=== PATIENT | female | born 1995 | race Caucasian/White ===

== ENCOUNTER 2017-12-01 12:47 | Emergency (ER) | payer OTHER ==
[~2017-12-01] VITALS: Ht 170.2 cm; Wt 65.8 kg
[~2017-12-01 12:47] MED LIST: Atarax10 MG; Augmentin 500-1 EACH PO; CIPR500 PO; DOXY100 PO; ESCI10 PO; HYDHCL25 PO; IBUP400 PO; IBUP600 PO; IBUP800 PO; MAGIC MOUTHWASH; METO10 PO; METR250 PO; METR500 PO; MUPI2TO TOP; Norco 5-325 Ta1 EACH PO; OXYACE7.5T PO; PARO20; PERM5TC TOP; PROM25 PO; PROM25 PR; Pseudoephedrine30 MG PO; Zofran Odt4 MG SL
[2017-12-01] MEDS ORDERED: QUET200 PO (13:48)
[2017-12-01] MEDS ORDERED: BUSP10 PO (13:48)
[2017-12-01] MEDS ORDERED: ALBU90OI INH (14:42)
[2017-12-01] MEDS ORDERED: BENZ100A PO (14:42)
[2017-12-01] MEDS ORDERED: Prednisone20 MG PO (14:42)
== END 2017-12-01 14:49 | disposition home or self-care (01) ==
LOC: ER 12:47
DX: J40 Bronchitis, not specified as acute or chronic (principal); F17.210 Nicotine dependence, cigarettes, uncomplicated; Z79.899 Other long term (current) drug therapy
CPT/HCPCS: 71046; 94640; 99284

== ENCOUNTER 2018-02-09 19:14 | Emergency (ER) | payer OTHER ==
[~2018-02-09] VITALS: Ht 165.1 cm; Wt 64.9 kg
[~2018-02-09 19:14] MED LIST changes: +ALBU90OI INH; +BENZ100A PO; +BUSP10 PO; +Prednisone20 MG PO; +QUET200 PO
[2018-02-09] MEDS ORDERED: ERYT1OIN LEFTEYE (19:32)
[2018-02-09] MEDS ORDERED: BUSP10 PO (19:38)
[2018-02-09] MEDS ORDERED: QUET200 PO ×2 (19:40→19:41)
[2018-02-09] MEDS ORDERED: TRAZ150T57 PO (19:43)
[2018-02-09] MEDS ORDERED: IBUP600 PO (19:44)
[2018-02-09] MEDS ORDERED: Omeprazole20 M1 (19:44)
[2018-02-09] MEDS ORDERED: BUPR75 PO (19:44)
[2018-02-09] MEDS ORDERED: Cyclobenzaprine5 MG PO (19:44)
[2018-02-09] MEDS ORDERED: ERGO400 PO (19:47)
== END 2018-02-09 19:57 | disposition home or self-care (01) ==
LOC: ER 19:14
DX: S05.02XA Injury of conjunctiva and corneal abrasion without foreign body, left eye, initial encounter (principal); F17.200 Nicotine dependence, unspecified, uncomplicated; Z79.899 Other long term (current) drug therapy; X58.XXXA Exposure to other specified factors, initial encounter
CPT/HCPCS: 99283

== ENCOUNTER 2018-03-09 21:46 | Emergency (ER) | payer OTHER ==
[~2018-03-09] VITALS: Ht 167.6 cm; Wt 66.2 kg
[~2018-03-09 21:46] MED LIST changes: +BUPR75 PO; +Cyclobenzaprine5 MG PO; +ERGO400 PO; +ERYT1OIN LEFTEYE; +Omeprazole20 M1; +TRAZ150T57 PO
[2018-03-09] MEDS ORDERED: Voltaren100 GM TOP (23:31)
== END 2018-03-09 23:51 | disposition home or self-care (01) ==
LOC: ER 21:46
DX: R07.89 Other chest pain (principal); F17.200 Nicotine dependence, unspecified, uncomplicated; Z79.899 Other long term (current) drug therapy
CPT/HCPCS: 93005; 93010; 99283-25

== ENCOUNTER 2021-03-09 21:18 | Emergency (ER) | payer OTHER ==
[~2021-03-09] VITALS: Ht 165.1 cm; Wt 45.4 kg
[~2021-03-09 21:18] MED LIST changes: +Voltaren100 GM TOP
[2021-03-10] MEDS ORDERED: Percocet 5-3251 EACH PO (00:26)
[2021-03-10] MEDS ORDERED: Zofran8 MG PO (00:26)
== END 2021-03-10 00:41 | disposition home or self-care (01) ==
LOC: ER 21:18
DX: M27.3 Alveolitis of jaws (principal); F17.210 Nicotine dependence, cigarettes, uncomplicated; Z79.899 Other long term (current) drug therapy
CPT/HCPCS: 96372; 99282-25; A9270; J1885

== ENCOUNTER → 2022-02-21 | Outpatient (CLI) | payer OTHER ==
[~2022-02-21] MED LIST changes: +ONDA4ODT MM; +Percocet 5-3251 EACH PO; +Zofran8 MG PO
[2022-02-22 09:10] LABS: HIV AB/P24 AG SCREEN Non Reactive (Non Reactive)
[2022-02-23 08:11] LABS: HBSAG SCREEN Negative (Negative); HCV AB <0.1 (0.0-0.9); HEP A AB, IGM Negative (Negative); HEP B CORE AB, TOT Negative (Negative)
[2022-02-23 16:11] LABS: CHLAMYDIA BY NAA Negative (Negative); GONOCOCCUS BY NAA Negative (Negative); TRICH VAG BY NAA Negative (Negative)
== END | disposition home or self-care (01) ==
LOC: LAB SHORT 10:20 → LAB 10:20
PROVIDERS: General Practice
DX: Z11.3 Encounter for screening for infections with a predominantly sexual mode of transmission (principal); N39.0 Urinary tract infection, site not specified; Z20.09 Contact with and (suspected) exposure to other intestinal infectious diseases
CPT/HCPCS: 86592; 86704; 86708; 86803; 87086; 87340; 87389; 87491; 87591; 87661

== ENCOUNTER 2022-07-19 18:49 | Emergency (ER) | payer OTHER ==
[~2022-07-19] VITALS: Ht 162.6 cm; Wt 52.2 kg
[2022-07-19 19:58] LABS: Source, Urine Clean Catch
[2022-07-19 20:02] LABS: Appearance, Urine Clear (Clear); Bilirubin, Urine Neg (Neg); Blood, Urine Neg (Neg); Color, Urine Yellow (P-Yellow); Glucose Qualitative, Urine Neg (Neg); Ketones, Urine Neg (Neg); Leukocyte Esterase, Urine Neg (Neg); Nitrite, Urine Neg (Neg); Protein, Urine Neg (Neg); Urobilinogen, Urine NORM (Normal)
[2022-07-19 20:19] LABS: BASOPHILS ABSOLUTE AUTO 0.06 K/mm3 (0.00-0.23); BASOPHILS PERCENT AUTO 0 % (0-2); EOSINOPHILS ABSOLUTE AUTO 0.22 K/mm3 (0.00-0.68); EOSINOPHILS PERCENT AUTO 2 % (0-6); Hematocrit 40.7 % (33.0-51.0); Hemoglobin 13.5 g/dL (11.5-16.0); Mean Corpuscular HGB 30.5 pg (26.0-34.0); Mean Corpuscular HGB Conc 33.2 g/dL (31.5-36.5); Mean Corpuscular Volume 92 fL (80-100); Mean Platelet Volume 8.7 fL (9.1-12.4); Platelet Count 314 K/mm3 (150-400); RDW Coefficient Variation 12.5 % (11.7-14.2); RDW Standard Deviation 42.2 fL (35.1-46.3); Red Blood Cell Count 4.43 M/mm3 (3.80-5.20); White Blood Cell Count 13.53 K/mm3 (4.00-11.30)
[2022-07-19 20:21] LABS: IMMATURE GRAN ABSOLUTE AUTO 0.03 K/mm3 (0.00-0.10); IMMATURE GRAN PERCENT AUTO 0 % (0-1); LYMPHOCYTES ABSOLUTE AUTO 6.27 K/mm3 (0.84-5.20); LYMPHOCYTES PERCENT AUTO 46 % (21-46); MONOCYTES ABSOLUTE AUTO 0.82 K/mm3 (0.16-1.47); MONOCYTES PERCENT AUTO 6 % (4-13); NEUTROPHILS ABSOLUTE AUTO 6.13 K/mm3 (1.96-9.15); NEUTROPHILS PERCENT AUTO 45 % (41-73)
[2022-07-19 20:50] LABS: Albumin, Blood 4.3 g/dL (3.4-5.0); Albumin/Globulin Ratio 1.3 (0.8-1.8); Bilirubin, Total 0.4 mg/dL (0.1-1.0); Bun/Creatinine Ratio 16.9 (12.0-20.0); Calcium, Blood 8.8 mg/dL (8.5-10.1); Creatinine, Blood 0.59 mg/dL (0.40-1.00); Globulin, Blood 3.3 g/dL (2.2-4.0); Total Protein, Blood 7.6 g/dL (6.4-8.2)
== END 2022-07-20 02:19 | disposition home or self-care (01) ==
LOC: ER 18:49
PROVIDERS: Student in an Organized Health Care Education/Training Program
DX: R10.31 Right lower quadrant pain (principal); N70.11 Chronic salpingitis; F17.210 Nicotine dependence, cigarettes, uncomplicated; Z79.899 Other long term (current) drug therapy
CPT/HCPCS: 76830; 76856; 80053; 81003; 81025; 85025; J1885

== ENCOUNTER 2022-08-27 10:37 | Day surgery (SDC) | payer OTHER ==
[~2022-08-27] VITALS: Ht 165.1 cm; Wt 51.8 kg
--- NOTE | 2022-08-27 12:19 | NUR ---
08/27/22 1218 Pricila Yepez [facility].AM UPPER PREP-DURAPREP ORS.KNLi LOWER PREP-CHLORAPREP
[2022-08-28] MEDS ORDERED: ONDA4ODT MM (00:56)
== END 2022-08-27 14:55 | disposition home or self-care (01) ==
LOC: ORSCSDS 10:37
PROVIDERS: Obstetrics & Gynecology
PROC: 0DNU4ZZ Release Omentum, Percutaneous Endoscopic Approach (ICD-10-PCS; principal; 2022-08-27 12:00)
PROC: 0UT54ZZ Resection of Right Fallopian Tube, Percutaneous Endoscopic Approach (ICD-10-PCS; principal; 2022-08-27 12:00)
DX: R10.2 Pelvic and perineal pain (principal); R19.00 Intra-abdominal and pelvic swelling, mass and lump, unspecified site; N70.11 Chronic salpingitis; K66.0 Peritoneal adhesions (postprocedural) (postinfection); N83.8 Other noninflammatory disorders of ovary, fallopian tube and broad ligament
CPT/HCPCS: 88305; J0171; J1100; J1885; J2250; J2405; J2704; J2765; J2795; J3010; J7030

== ENCOUNTER 2022-08-27 23:59 | Emergency (ER) | payer OTHER ==
[~2022-08-27] VITALS: Ht 165.1 cm; Wt 51.7 kg
[2022-08-28] MEDS ORDERED: ONDA4ODT MM (00:56)
== END 2022-08-28 02:21 | disposition home or self-care (01) ==
LOC: ER 23:59
DX: R11.2 Nausea with vomiting, unspecified (principal); F17.210 Nicotine dependence, cigarettes, uncomplicated; Z98.890 Other specified postprocedural states; Z88.5 Allergy status to narcotic agent; Z88.6 Allergy status to analgesic agent
CPT/HCPCS: 96374; 96375; 99284; J1200; J2765; J7030

== ENCOUNTER → 2023-01-20 | Outpatient (CLI) | payer OTHER ==
[2023-01-20 16:19] LABS: BASOPHILS ABSOLUTE AUTO 0.08 K/mm3 (0.00-0.23); BASOPHILS PERCENT AUTO 0 % (0-2); EOSINOPHILS ABSOLUTE AUTO 0.03 K/mm3 (0.00-0.68); EOSINOPHILS PERCENT AUTO 0 % (0-6); Hematocrit 42.4 % (33.0-51.0); Hemoglobin 14.9 g/dL (11.5-16.0); IMMATURE GRAN ABSOLUTE AUTO 0.14 K/mm3 (0.00-0.10); IMMATURE GRAN PERCENT AUTO 1 % (0-1); LYMPHOCYTES ABSOLUTE AUTO 3.47 K/mm3 (0.84-5.20); LYMPHOCYTES PERCENT AUTO 13 % (21-46); MONOCYTES ABSOLUTE AUTO 1.85 K/mm3 (0.16-1.47); MONOCYTES PERCENT AUTO 7 % (4-13); Mean Corpuscular HGB 31.1 pg (26.0-34.0); Mean Corpuscular HGB Conc 35.1 g/dL (31.5-36.5); Mean Corpuscular Volume 89 fL (80-100); Mean Platelet Volume 8.5 fL (9.1-12.4); NEUTROPHILS ABSOLUTE AUTO 20.72 K/mm3 (1.96-9.15); NEUTROPHILS PERCENT AUTO 79 % (41-73); Platelet Count 317 K/mm3 (150-400); RDW Coefficient Variation 12.3 % (11.7-14.2); RDW Standard Deviation 40.2 fL (35.1-46.3); Red Blood Cell Count 4.79 M/mm3 (3.80-5.20); White Blood Cell Count 26.29 K/mm3 (4.00-11.30)
[2023-01-20 16:36] LABS: Albumin, Blood 4.8 g/dL (3.4-5.0); Albumin/Globulin Ratio 1.3 (0.8-1.8); Bilirubin, Total 0.9 mg/dL (0.1-1.0); Calcium, Blood 9.5 mg/dL (8.5-10.1); Creatinine, Blood 0.77 mg/dL (0.40-1.00); Globulin, Blood 3.8 g/dL (2.2-4.0); Potassium, Blood 3.4 mmol/L (3.5-5.5); Total Protein, Blood 8.6 g/dL (6.4-8.2)
== END | disposition home or self-care (01) ==
LOC: LAB SHORT 16:15 → LAB 16:15
PROVIDERS: Family Medicine
DX: R10.9 Unspecified abdominal pain (principal)
CPT/HCPCS: 80053; 83690; 85025

== ENCOUNTER → 2023-01-21 | Outpatient (CLI) | payer OTHER ==
[2023-01-21 14:20] LABS: C DIFFICILE DNA POSITIVE (Negative)
== END | disposition home or self-care (01) ==
LOC: LAB SHORT 03:45 → LAB 03:45
PROVIDERS: Family Medicine
DX: R19.7 Diarrhea, unspecified (principal)
CPT/HCPCS: 87324; 87493

== ENCOUNTER 2024-09-24 22:05 | Observation (INO) | payer OTHER ==
[~2024-09-24] VITALS: Ht 160 cm; Wt 49.9 kg
[2024-09-24 23:03] LABS: BASOPHILS ABSOLUTE AUTO 0.02 K/mm3 (0.00-0.23); BASOPHILS PERCENT AUTO 0 % (0-2); EOSINOPHILS ABSOLUTE AUTO 0.01 K/mm3 (0.00-0.68); EOSINOPHILS PERCENT AUTO 0 % (0-6); Hematocrit 35.3 % (33.0-51.0); Hemoglobin 12.4 g/dL (11.5-16.0); IMMATURE GRAN ABSOLUTE AUTO 0.05 K/mm3 (0.00-0.10); IMMATURE GRAN PERCENT AUTO 0 % (0-1); LYMPHOCYTES ABSOLUTE AUTO 2.37 K/mm3 (0.84-5.20); LYMPHOCYTES PERCENT AUTO 17 % (21-46); MONOCYTES ABSOLUTE AUTO 0.58 K/mm3 (0.16-1.47); MONOCYTES PERCENT AUTO 4 % (4-13); Mean Corpuscular HGB 31.3 pg (26.0-34.0); Mean Corpuscular HGB Conc 35.1 g/dL (31.5-36.5); Mean Corpuscular Volume 89 fL (80-100); Mean Platelet Volume 8.2 fL (9.1-12.4); NEUTROPHILS ABSOLUTE AUTO 11.26 K/mm3 (1.96-9.15); NEUTROPHILS PERCENT AUTO 79 % (41-73); Platelet Count 279 K/mm3 (150-400); RDW Coefficient Variation 12.1 % (11.7-14.2); RDW Standard Deviation 39.8 fL (35.1-46.3); Red Blood Cell Count 3.96 M/mm3 (3.80-5.20); White Blood Cell Count 14.29 K/mm3 (4.00-11.30)
[2024-09-24 23:05] LABS: Source, Urine Clean Catch
[2024-09-24 23:08] LABS: Bilirubin, Urine Neg (Neg); Blood, Urine 1+ (Neg); Glucose Qualitative, Urine Neg (Neg); Ketones, Urine 4+ (Neg); Leukocyte Esterase, Urine Neg (Neg); Nitrite, Urine Neg (Neg); Protein, Urine 2+ (Neg); Specific Gravity, Urine 1.025 (1.003-1.022); Urobilinogen, Urine NORM (Normal)
[2024-09-24] MEDS ORDERED: Acetaminophen 500 MG Tab PO ONE (23:10)
[2024-09-24] MEDS ORDERED: Ondansetron HCl 2 MG / ML 2ML Vial IV ONE (23:10)
[2024-09-24] MEDS ORDERED: NS 1,000 ML IV SCH (23:10)
[2024-09-24 23:18] LABS: Albumin/Globulin Ratio 1.3 (0.8-1.8); Bilirubin, Total 0.5 mg/dL (0.1-1.0); Creatinine, Blood 0.42 mg/dL (0.40-1.00); Globulin, Blood 3.1 g/dL (2.2-4.0); Potassium, Blood 3.7 mmol/L (3.5-5.5); Total Protein, Blood 7.1 g/dL (6.4-8.2)
[2024-09-24 23:19] LABS: Color, Urine Yellow (P-Yellow)
[2024-09-24 23:20] LABS: Appearance, Urine Hazy (Clear)
[2024-09-24 23:22] LABS: Bacteria Mod /hpf; Mucus Light (0-Heavy); Red Blood Cells, Urine 0-2 /hpf (0-2); Squamous Epithelial Cells Mod /hpf (Few); White Blood Cells, Urine 0-2 /hpf (0-5); Yeast/Fungi Urine Few /hpf
[2024-09-24] MEDS ORDERED: DiphenhydrAMINE HCl 50 MG/ML 1ML Vial IV ONE (23:55)
[2024-09-24] MEDS ORDERED: Metoclopramide HCl 5MG / ML 2ML Vial IV ONE (23:55)
[2024-09-25 00:15] LABS: Influenza A, PCR NEGATIVE (NEGATIVE); Influenza B, PCR NEGATIVE (NEGATIVE); Resp Syncytial Virus, PCR NEGATIVE (NEGATIVE); SARS-Cov-2 (COVID-19) PCR, MMC NEGATIVE (NEGATIVE)
[2024-09-25] MEDS ORDERED: Prochlorperazine Edisylate 10 mg Vial IV ONE (00:55)
[2024-09-25] MEDS ORDERED: Famotidine 10 MG/ML 2ML Vial IV ONE (00:55)
[2024-09-25] MEDS ORDERED: Promethazine HCl 25 MG Tab PO ONE (02:10)
[2024-09-25] MEDS ORDERED: NS 1,000 ML IV SCH (02:20)
[2024-09-25] MEDS ORDERED: NS 1,000 ML IV ONE (02:20)
[2024-09-25] MEDS ORDERED: PROM12.5S PR (03:13)
[2024-09-25 03:15] VITALS: BP 107/81
== END 2024-09-25 03:15 | disposition home or self-care (01) ==
LOC: ER 22:05 → ERHOLD 22:06 → EDBEDREQ 09-25 02:17 → ERHOLD 09-25 03:15
PROVIDERS: Physician Assistant; ADMIT Obstetrics & Gynecology
DX: O21.0 Mild hyperemesis gravidarum (principal); Z3A.01 Less than 8 weeks gestation of pregnancy; F17.210 Nicotine dependence, cigarettes, uncomplicated; F12.99 Cannabis use, unspecified with unspecified cannabis-induced disorder
CPT/HCPCS: 0241U; 80053; 81001; 83690; 85025; 96361; 96374; 96375; 99285-25; A9270; G0378; J0780; J1200; J2405; J2765; J7030

== ENCOUNTER → 2024-10-07 | Outpatient (CLI) | payer OTHER ==
[~2024-10-07] MED LIST changes: +PROM12.5S PR
[2024-10-07 12:56] LABS: Source, Urine Voided
[2024-10-07 14:32] LABS: Amorphous Heavy (0-Heavy); Bacteria Few /hpf; White Blood Cells, Urine 0-2 /hpf (0-5)
[2024-10-07 14:33] LABS: Squamous Epithelial Cells Many /hpf (Few)
[2024-10-07 14:43] LABS: U Amphetamine Screen Not Detected; U Barbituate Screen Not Detected; U Benzodiazapine Screen Not Detected; U Cannabinoids Screen DETECTED; U Cocaine Screen Not Detected; U Methadone Screen Not Detected; U Methamphetamine Screen Not Detected; U Opiates Screen Not Detected; U Phencyclidine Screen Not Detected
[2024-10-07 14:44] LABS: U Buprenorphine Screen Not Detected; U Oxycodone Screen Not Detected
[2024-10-10 14:24] LABS: 11-NOR-9-CARBOXY-THC,URN,QUANT >500 ng/mL
== END | disposition home or self-care (01) ==
LOC: LAB 10:15 → LAB SHORT 10:15
PROVIDERS: Obstetrics & Gynecology
DX: Z34.01 Encounter for supervision of normal first pregnancy, first trimester (principal)
CPT/HCPCS: 81015; 87086; G0480

== ENCOUNTER → 2025-03-31 | Outpatient (CLI) | payer OTHER ==
[2025-03-31 22:19] LABS: Protein, Urine Quantitative 14.3 mg/dL (0.0-11.9)
== END ==
LOC: LAB SHORT 14:38 → LAB 14:38
PROVIDERS: Obstetrics & Gynecology
DX: R03.0 Elevated blood-pressure reading, without diagnosis of hypertension (principal)
CPT/HCPCS: 81050; 84156

== ENCOUNTER → 2025-04-11 | Outpatient (CLI) | payer OTHER ==
[2025-04-11 19:28] LABS: BASOPHILS ABSOLUTE AUTO 0.04 K/mm3 (0.00-0.23); BASOPHILS PERCENT AUTO 0 % (0-2); EOSINOPHILS ABSOLUTE AUTO 0.20 K/mm3 (0.00-0.68); EOSINOPHILS PERCENT AUTO 2 % (0-6); Hematocrit 33.7 % (33.0-51.0); Hemoglobin 11.6 g/dL (11.5-16.0); IMMATURE GRAN ABSOLUTE AUTO 0.12 K/mm3 (0.00-0.10); IMMATURE GRAN PERCENT AUTO 1 % (0-1); LYMPHOCYTES ABSOLUTE AUTO 2.68 K/mm3 (0.84-5.20); LYMPHOCYTES PERCENT AUTO 22 % (21-46); MONOCYTES ABSOLUTE AUTO 1.01 K/mm3 (0.16-1.47); MONOCYTES PERCENT AUTO 8 % (4-13); Mean Corpuscular HGB Conc 34.4 g/dL (31.5-36.5); Mean Corpuscular Volume 89 fL (80-100); NEUTROPHILS ABSOLUTE AUTO 8.09 K/mm3 (1.96-9.15); NEUTROPHILS PERCENT AUTO 67 % (41-73); NRBC ABSOLUTE 0.00 K/mm3 (0.00-0.02); NRBC Auto 0.0 /100 WBC (0.0-0.2); Platelet Count 250 K/mm3 (150-400); RDW Coefficient Variation 12.4 % (11.7-14.2); RDW Standard Deviation 40.3 fL (35.1-46.3)
[2025-04-11 20:16] LABS: Alanine Aminotransfer (ALT/SGP 23.0 U/L (12-78); Albumin, Blood 2.5 g/dL (3.4-5.0); Albumin/Globulin Ratio 0.7 (0.8-1.8); Anion Gap 12.0 mmol/L (3-11); Aspartate Aminotrans (AST/SGOT 16.0 U/L (12-37); Bilirubin, Total 0.2 mg/dL (0.1-1.0); Blood Urea Nitrogen 5.0 mg/dL (8-24); CO2, Blood 20.0 mmol/L (21-32); Calcium, Blood 8.3 mg/dL (8.5-10.1); Chloride, Blood 108.0 mmol/L (98-108); Creatinine, Blood 0.46 mg/dL (0.40-1.00); Globulin, Blood 3.7 g/dL (2.2-4.0); Glucose, Blood 92.0 mg/dL (70-99); Potassium, Blood 3.5 mmol/L (3.5-5.5); Sodium, Blood 136.0 mmol/L (136-145); Total Protein, Blood 6.2 g/dL (6.4-8.2)
== END ==
LOC: LAB SHORT 16:19 → LAB 16:19
PROVIDERS: Obstetrics & Gynecology
DX: O09.893 Supervision of other high risk pregnancies, third trimester (principal)
CPT/HCPCS: 36415; 80053; 85025; 87081; 87150

== ENCOUNTER → 2025-04-27 | Outpatient (CLI) | payer OTHER ==
[2025-04-27 20:18] LABS: Creatinine, Urine Random 66.5 mg/dL (27.00-270.00); Protein, Urine Random 15.4 mg/dL (0.0-11.9); Protein/Creat Ratio, Ur Random 0.2
== END ==
LOC: LAB 16:43 → LAB SHORT 16:43
PROVIDERS: Obstetrics & Gynecology
DX: R03.0 Elevated blood-pressure reading, without diagnosis of hypertension (principal)
CPT/HCPCS: 82570; 84156

== ENCOUNTER 2025-05-08 09:22 | Inpatient (IN) | payer OTHER ==
[~2025-05-08] VITALS: Ht 167.6 cm; Wt 86.0 kg
[2025-05-08] VITALS (18 sets, daily range): BP systolic 97–137; BP diastolic 55–88
[2025-05-08] MEDS ORDERED: Ondansetron HCl 2 MG / ML 2ML Vial IV PRN (09:55)
[2025-05-08] MEDS ORDERED: Methylergonovine Maleate 0.2MG / ML 1ML Amp IM PRN ×2 (09:55→23:25)
[2025-05-08] MEDS ORDERED: Oxytocin 10 Unit / ML Vial IM PRN (09:55)
[2025-05-08] MEDS ORDERED: Carboprost Tromethamine 250 MCG/ML 1ML Amp IM PRN ×2 (09:55→23:20)
[2025-05-08] MEDS ORDERED: OXYTOCIN/RINGER'S LACTATE 500 ML IV PRN (09:55)
[2025-05-08] MEDS ORDERED: Tranexamic Acid 100 ML IV SCH (09:55)
[2025-05-08] MEDS ORDERED: FentaNYL 2mcg/ml-Bup 0.1% Epd 250 ML EPI PRN (10:00)
[2025-05-08] MEDS ORDERED: ePHEDrine Sulfate 50 MG/ML 1ML Injection XX PRN (10:00)
[2025-05-08] MEDS ORDERED: PRENATAL TABLE1 EAC2 PO (10:00)
[2025-05-08 10:11] LABS: BASOPHILS ABSOLUTE AUTO 0.03 K/mm3 (0.00-0.23); BASOPHILS PERCENT AUTO 0 % (0-2); EOSINOPHILS ABSOLUTE AUTO 0.13 K/mm3 (0.00-0.68); EOSINOPHILS PERCENT AUTO 1 % (0-6); Hematocrit 36.9 % (33.0-51.0); Hemoglobin 12.7 g/dL (11.5-16.0); IMMATURE GRAN ABSOLUTE AUTO 0.07 K/mm3 (0.00-0.10); IMMATURE GRAN PERCENT AUTO 1 % (0-1); LYMPHOCYTES ABSOLUTE AUTO 2.13 K/mm3 (0.84-5.20); LYMPHOCYTES PERCENT AUTO 19 % (21-46); MONOCYTES ABSOLUTE AUTO 0.72 K/mm3 (0.16-1.47); MONOCYTES PERCENT AUTO 6 % (4-13); Mean Corpuscular HGB Conc 34.4 g/dL (31.5-36.5); Mean Corpuscular Volume 89 fL (80-100); NEUTROPHILS ABSOLUTE AUTO 8.12 K/mm3 (1.96-9.15); NEUTROPHILS PERCENT AUTO 73 % (41-73); NRBC ABSOLUTE 0.00 K/mm3 (0.00-0.02); NRBC Auto 0.0 /100 WBC (0.0-0.2); Platelet Count 236 K/mm3 (150-400); RDW Coefficient Variation 12.7 % (11.7-14.2); RDW Standard Deviation 41.2 fL (35.1-46.3)
[2025-05-08] MEDS ORDERED: OXYTOCIN/RINGER'S LACTATE 500 ML IV SCH ×2 (19:20→23:15)
[2025-05-08] MEDS ORDERED: FentaNYL Citrate 50 MCG/ML 2 ML Injection ONE ×2 (20:03→22:28)
[2025-05-08] MEDS ORDERED: FentaNYL Citrate 50 MCG/ML 2 ML Injection IV ONE ×3 (22:35→23:55)
[2025-05-08] MEDS ORDERED: Oxytocin 10 Unit / ML Vial IM ONE (23:20)
[2025-05-08] MEDS ORDERED: Witch Hazel/Glycerin PADS TOP PRN (23:20)
[2025-05-08] MEDS ORDERED: Benzocaine Topical Anesthetic Spray 60GM TOP PRN (23:25)
[2025-05-08] MEDS ORDERED: CeFAZolin Sodium 2,000 MG in NS 100 ML IV ONE (23:55)
[2025-05-09] VITALS (11 sets, daily range): BP systolic 119–142; BP diastolic 62–76
[2025-05-09] MEDS ORDERED: Ketorolac Tromethamine 30mg Vial IV SCH
[2025-05-09 07:45] LABS: BASOPHILS ABSOLUTE AUTO 0.03 K/mm3 (0.00-0.23); BASOPHILS PERCENT AUTO 0 % (0-2); EOSINOPHILS ABSOLUTE AUTO 0.02 K/mm3 (0.00-0.68); EOSINOPHILS PERCENT AUTO 0 % (0-6); Hematocrit 29.8 % (33.0-51.0); Hemoglobin 10.1 g/dL (11.5-16.0); IMMATURE GRAN ABSOLUTE AUTO 0.12 K/mm3 (0.00-0.10); IMMATURE GRAN PERCENT AUTO 1 % (0-1); LYMPHOCYTES ABSOLUTE AUTO 2.31 K/mm3 (0.84-5.20); LYMPHOCYTES PERCENT AUTO 13 % (21-46); MONOCYTES ABSOLUTE AUTO 1.40 K/mm3 (0.16-1.47); MONOCYTES PERCENT AUTO 8 % (4-13); Mean Corpuscular HGB Conc 33.9 g/dL (31.5-36.5); Mean Corpuscular Volume 90 fL (80-100); NEUTROPHILS ABSOLUTE AUTO 14.48 K/mm3 (1.96-9.15); NEUTROPHILS PERCENT AUTO 79 % (41-73); NRBC ABSOLUTE 0.00 K/mm3 (0.00-0.02); NRBC Auto 0.0 /100 WBC (0.0-0.2); Platelet Count 211 K/mm3 (150-400); RDW Coefficient Variation 12.7 % (11.7-14.2); RDW Standard Deviation 41.7 fL (35.1-46.3)
[2025-05-09] MEDS ORDERED: Prenatal Vit/FE Fumarate/FA 1 Tab PO SCH (09:00)
[2025-05-09] MEDS ORDERED: HYDROcodone 5-APAP 325 TAB PO PRN (20:45)
--- NOTE | 2025-05-09 22:58 | NUR ---
Assumed care at change of shift, patient resting in bed holding . Reports pain in vaginal area due to extensive internal repair and reports she is going to shower as that was helpful earlier. At approx 2030 while patient was in shower she appeared very uncomfortable, discussed calling provider to request stronger pain medication due to current pain management plan not feeling adequate. Patient understood and agreed with that plan. New orders rec'd from [facility] for norco 5/325 q4h prn due to patients allergy to oxycodone. Medicated per order and documented in [facility]. Patient expressed some relief at time of reassessment. Requires help from partner in bathroom, gaurding noted when getting in and out of bed and with ambulation. Continuing with pharmological and nonpharmological methods to manage pain and discomfort.
[2025-05-10 00:43] VITALS: BP 122/75
[2025-05-10 03:40] VITALS: BP 121/70
[2025-05-10 07:39] VITALS: BP 117/60
[2025-05-10] MEDS ORDERED: Ondansetron 4 MG SoluTab MM PRN (11:10)
[2025-05-10 11:12] VITALS: BP 101/56
[2025-05-10 15:53] VITALS: BP 122/72
== END 2025-05-10 16:56 | disposition home or self-care (01) | DRG 807 ==
LOC: BC 09:22 → OBS 09:22 → BC 09:34
PROVIDERS: ADMIT Advanced Practice Midwife
PROC: 10E0XZZ Delivery of Products of Conception, External Approach (ICD-10-PCS; principal; 2025-05-08)
PROC: 4A1HXCZ Monitoring of Products of Conception, Cardiac Rate, External Approach (ICD-10-PCS; 2025-05-08)
PROC: 0KQM0ZZ Repair Perineum Muscle, Open Approach (ICD-10-PCS; 2025-05-09)
PROC: 0T9B70Z Drainage of Bladder with Drainage Device, Via Natural or Artificial Opening (ICD-10-PCS; 2025-05-09)
DX: O42.02 Full-term premature rupture of membranes, onset of labor within 24 hours of rupture (principal); Z37.0 Single live birth; Z3A.39 39 weeks gestation of pregnancy; Z88.5 Allergy status to narcotic agent; R03.0 Elevated blood-pressure reading, without diagnosis of hypertension; O75.89 Other specified complications of labor and delivery; O77.0 Labor and delivery complicated by meconium in amniotic fluid; O70.1 Second degree perineal laceration during delivery
CPT/HCPCS: 36415; 51702; 59025; 85025; 86850; 86900; 86901; 99214; A9270; J0690; J1885; J3010; J7120